=== PATIENT | male | born 1950 | race Caucasian/White ===

== ENCOUNTER 2021-04-21 11:09 | Emergency (ER) | payer MEDICARE ==
[~2021-04-21] VITALS: Ht 172.7 cm; Wt 86.2 kg
[2021-04-21] MEDS ORDERED: ZESTRIL5 MG PO (11:31)
== END 2021-04-21 12:18 | disposition home or self-care (01) ==
LOC: ED 11:09
PROC: 0HQGXZZ Repair Left Hand Skin, External Approach (ICD-10-PCS; principal; 2021-04-21)
DX: S61.412A Laceration without foreign body of left hand, initial encounter (principal); I10 Essential (primary) hypertension; W45.8XXA Other foreign body or object entering through skin, initial encounter
CPT/HCPCS: 12002; 99282-25